=== PATIENT | male | born 1985 | race Caucasian/White ===

== ENCOUNTER → 2024-03-15 | Outpatient (CLI) | payer OTHER, SELFPAY ==
[2024-03-22 07:03] LABS: DHEA Sulfate* 178 mcg/dL (106-464); Testosterone, Total, Dialysis 346 ng/dL (250-1100)
[2024-03-22 07:04] LABS: Testosterone, Free,Dialysis 55.9 pg/mL (35.0-155.0)
== END | disposition home or self-care (01) ==
LOC: COPL 16:25
PROVIDERS: PCP Family Medicine; Referring Provider Family Medicine; Visit Provider Family Medicine
DX: E29.1 Testicular hypofunction (principal)
CPT/HCPCS: 36415; 82627; 84402; 84403

== ENCOUNTER → 2024-12-25 | Outpatient (CLI) | payer OTHER, SELFPAY ==
--- NOTE | 2024-12-25 16:42 | XR_ITS ---
EXAMINATION: PA lateral chest 2 views TECHNIQUE: Upright PA lateral chest 2 views Date and time: December 25, 2024, 1648 hours, comparison January 18, 2018 INDICATIONS: Cough in 10 years FINDINGS: No significant cardiac enlargement No pneumonia or pulmonary edema. The osseous structures are intact. IMPRESSION: No active disease
== END | disposition home or self-care (01) ==
LOC: CDIM 16:33
PROVIDERS: PCP Registered Nurse Community Health; Referring Provider Registered Nurse Community Health; Visit Provider Registered Nurse Community Health
DX: R05.9 Cough, unspecified (principal)
CPT/HCPCS: 71046